=== PATIENT | female | born 1965 | race Caucasian/White ===

== ENCOUNTER → 2017-10-15 11:52 | Outpatient (REF) | payer MEDICARE, MEDICAID, SELFPAY ==
--- NOTE | 2017-10-15 09:55 | PAPFT_PTH ---
PATIENT: Nick Gonzalez LOC: [facility] U#:[id number] AGE/SX: 59/F ROOM: RE10/15/[address]: Gricelda Abdul : 1965 BED: DIS: SPEC #: [id number] RECD: 10/16/17 12:50 STATUS: DENITA RENegra #: [id number] JANNA: 10/15/17 09:[address]: Gricelda Abdul DEPT: [facility] Cytology RECD BY: Snehal Farias ENTERED: 10/16/17 12:50 SP TYPE: PAPFT OTHR DR: Lucie Cornelius Tissues: 1 - CX/ENDOCX FOR PAP SMEARS Procedures: PAP THIN PREP/[facility] Screening HPV DNA PROBE Comments: [id number]
== END ==
LOC: NCHCN 11:52
PROVIDERS: PCP Nurse Practitioner Family; Visit Provider Registered Nurse
DX: Z12.4 Encounter for screening for malignant neoplasm of cervix (principal); Z11.51 Encounter for screening for human papillomavirus (HPV)
CPT/HCPCS: 88142; 87624

== ENCOUNTER 2019-10-06 20:56 | Outpatient (REF) | payer MEDICARE, MEDICAID, SELFPAY ==
[2019-10-06 20:44] LABS: Hemoglobin A1C 6.5 % (3.8-5.6)
[2019-10-06 20:54] LABS: Anion Gap 9.8 mmol/L (3-11); BUN 18 mg/dL (7-18); CO2 28.2 mmol/L (21.0-32.0); Calcium 9.5 mg/dL (8.5-10.1); Calculated LDL 65 mg/dL (<100); Chloride 101 mmol/L (98-107); Cholesterol 143 mg/dL (<200); Estimated GFR 46.64 (mL/min/1.73m2); Glucose 131 mg/dL (74-106); HDL Cholesterol 57 mg/dL (40-60); Potassium 4.3 mmol/L (3.5-5.1); Sodium 139 mmol/L (136-145); Triglyceride 106 mg/dL (<150)
[2019-10-06 21:07] LABS: COMMENT (LAB VIEW ONLY) 27.45 mg/dL; Microalb ug/mg Crea 10.2 ug/mg Cr
== END 2019-10-06 21:16 ==
LOC: NCHCN 20:56
PROVIDERS: PCP Nurse Practitioner Family; Visit Provider Registered Nurse
DX: E11.9 Type 2 diabetes mellitus without complications (principal); E66.9 Obesity, unspecified; E78.5 Hyperlipidemia, unspecified
CPT/HCPCS: 80048; 80061; 82043; 82570; 83036

== ENCOUNTER 2019-10-15 13:40 | Outpatient (REF) | payer MEDICARE, MEDICAID, SELFPAY ==
[2019-10-15 20:59] LABS: BUN 17 mg/dL (7-18); CREATININE 0.95 mg/dL (0.55-1.02)
[2019-10-15 21:01] LABS: TSH < 0.01 uIU/mL (0.36-3.74)
[2019-10-18 09:38] LABS: FREE T4 1.56 ng/dL (0.76-1.46)
[2019-10-18 16:20] LABS: T3, Total 182 ng/dL (97-169)
== END 2019-10-15 14:00 ==
LOC: NCHCN 13:40
PROVIDERS: PCP Nurse Practitioner Family; Visit Provider Registered Nurse
DX: E05.90 Thyrotoxicosis, unspecified without thyrotoxic crisis or storm (principal); R94.4 Abnormal results of kidney function studies
CPT/HCPCS: 84520; 82565; 84439; 84443; 84480

== ENCOUNTER 2019-11-12 17:41 | Outpatient (REF) | payer MEDICARE, MEDICAID, SELFPAY ==
[2019-11-12 20:17] LABS: TSH (W/Ref FT4) < 0.01 uIU/mL (0.36-3.74)
[2019-11-12 20:35] LABS: FREE T4 1.99 ng/dL (0.76-1.46)
[2019-11-14 17:05] LABS: T3, Total 233 ng/dL (97-169)
[2019-11-16 10:30] LABS: Thyrotropin Receptor Ab <1.00 IU/L
== END 2019-11-12 18:01 ==
LOC: NCHCN 17:41
PROVIDERS: PCP Nurse Practitioner Family; Visit Provider Registered Nurse
DX: E05.90 Thyrotoxicosis, unspecified without thyrotoxic crisis or storm (principal)
CPT/HCPCS: 84235; 84439; 84443; 84480

== ENCOUNTER 2020-11-15 14:50 | Outpatient (REF) | payer MEDICARE, MEDICAID, SELFPAY ==
[2020-11-15 21:51] LABS: Anion Gap 8.9 mmol/L (3-11); BUN 18 mg/dL (7-18); CO2 28.1 mmol/L (21.0-32.0); Calcium 8.7 mg/dL (8.5-10.1); Chloride 105 mmol/L (98-107); Estimated GFR 57.35 (mL/min/1.73m2); Glucose 137 mg/dL (74-106); Potassium 4.4 mmol/L (3.5-5.1); Sodium 142 mmol/L (136-145)
[2020-11-15 22:09] LABS: COMMENT (LAB VIEW ONLY) 77.59 mg/dL; Microalb ug/mg Crea 3.9 ug/mg Cr
== END 2020-11-15 14:51 | disposition home or self-care (01) ==
LOC: NCHCN 14:50
PROVIDERS: PCP Nurse Practitioner Family; Visit Provider Registered Nurse
DX: E11.9 Type 2 diabetes mellitus without complications (principal)
CPT/HCPCS: 80048; 82043; 82570

== ENCOUNTER 2021-09-21 15:40 | Outpatient (REF) | payer MEDICARE, MEDICAID, SELFPAY ==
[2021-09-21 16:08] LABS: Anion Gap 8.9 mmol/L (3-11); BUN 17 mg/dL (7-18); CO2 29.1 mmol/L (21.0-32.0); CREATININE 1.1 mg/dL (0.55-1.02); Chloride 102 mmol/L (98-107); Glucose 170 mg/dL (74-106); Potassium 4.1 mmol/L (3.5-5.1); Sodium 140 mmol/L (136-145)
== END 2021-09-21 15:41 | disposition home or self-care (01) ==
LOC: NCHCN 15:40
PROVIDERS: PCP Nurse Practitioner Family; Visit Provider Registered Nurse
DX: E11.9 Type 2 diabetes mellitus without complications (principal)
CPT/HCPCS: 80048

== ENCOUNTER 2022-01-11 14:10 | Outpatient (REF) | payer MEDICARE, MEDICAID, SELFPAY ==
[2022-01-11 15:25] LABS: Calculated LDL 84 mg/dL (<100); Cholesterol 161 mg/dL (<200); HDL Cholesterol 62 mg/dL (40-60); TSH 2.13 uIU/mL (0.36-3.74); Triglyceride 76 mg/dL (<150)
[2022-01-11 15:52] LABS: FREE T4 0.89 ng/dL (0.76-1.46)
[2022-01-11 16:50] LABS: COMMENT (LAB VIEW ONLY) 72.72 mg/dL
== END 2022-01-11 14:11 | disposition home or self-care (01) ==
LOC: NCHCN 14:10
PROVIDERS: PCP Nurse Practitioner Family; Visit Provider Registered Nurse
DX: E11.9 Type 2 diabetes mellitus without complications (principal); E04.2 Nontoxic multinodular goiter; E05.90 Thyrotoxicosis, unspecified without thyrotoxic crisis or storm; E78.5 Hyperlipidemia, unspecified
CPT/HCPCS: 80061; 82043; 82570; 84439; 84443

== ENCOUNTER 2022-04-12 08:59 | Outpatient (REF) | payer MEDICARE, MEDICAID, SELFPAY ==
--- OUTSIDE RECORDS SUMMARY | 2022-04-12 09:06 | XMS_ITS | CCD ---
Author Name Unknown Address [address] [place] [address] [phone] Organization Unknown Address [address] [place] [address] [phone] Care Team Providers Care Entry Level Installation Technician Name Role Phone MEJIA LOPEZ Attending Physician [phone] Vital Signs Unknown or Not Available. Allergies Allergy Code Allergy Type Reaction Status No Known Allergies 0 No known allergies Active Procedures Unknown or Not Available. History of Immunizations Unknown or Not Available. Problems Unknown or Not Available. Results Unknown or Not Available. Active Medications Unknown or Not Available. Medications Administered During Visit Unknown or Not Available. Encounters Unknown or Not Available. Social History Smoking Status Code Start Date End Date Former smoker [id number] Patient Decision Aids Unknown or Not Available. Discharge Instructions You were admitted to [facility] on 01/15/2021 16:48 You were discharged from [facility] on 01/15/2021 16:48 Should you have any questions prior to discharge, please contact a member of your healthcare team. If you have left the hospital and have any questions, please contact your primary care physician. Chief Complaint and Reason For Visit Unknown or Not Available. Function Status Unknown or Not Available. Plan of Care Unknown or Not Available. Referral/Transition of Care Unknown or Not Available.
[2022-04-12 13:59] LABS: ALT 29 U/L (14-59); AST 36 U/L (15-37); Albumin 3.7 g/dL (3.4-5.0); Alkaline Phosphatase 119 U/L (46-116); Anion Gap 7.1 mmol/L (3-11); BUN 21 mg/dL (7-18); Bilirubin, Total 0.5 mg/dL (0.2-1.0); CO2 29.9 mmol/L (21.0-32.0); Calcium 9.3 mg/dL (8.5-10.1); Chloride 104 mmol/L (98-107); Estimated GFR 65.71 (mL/min/1.73m2); Glucose 182 mg/dL (74-106); Potassium 4.1 mmol/L (3.5-5.1); Sodium 141 mmol/L (136-145); Total Protein 7.8 g/dL (6.4-8.2)
== END 2022-04-12 09:00 | disposition home or self-care (01) ==
LOC: NCHCN 08:59
PROVIDERS: PCP Registered Nurse; Visit Provider Registered Nurse
DX: E11.9 Type 2 diabetes mellitus without complications (principal); E66.8 Other obesity
CPT/HCPCS: 80053

== ENCOUNTER 2022-10-10 09:14 | Outpatient (REF) | payer MEDICARE, MEDICAID, SELFPAY ==
--- NOTE | 2022-10-10 08:30 | PAPFT_PTH ---
PATIENT: Nick Gonzalez LOC: [facility]#:[id number] AGE/SX: 57/F ROOM: RE10/10/[address]: Gricelda Abdul : 1965 BED: DIS: 10/10/2022 SPEC #: [id number] RECD: 10/10/22 15:58 STATUS: SHEREENDat REQ #: [id number] JANNA: 10/10/22 08:[address]: Gricelda Abdul DEPT: [facility] Cytology RECD BY: Snehal Farias ENTERED: 10/10/22 15:59 SP TYPE: PAPFT OTHR DR: Gaviota Miguel Tissues: 1 - CX/ENDOCX FOR PAP SMEARS Procedures: PAP THIN PREP/[facility] Screening HPV DNA PROBE Comments: [id number] (HPV 16 & 18/45)
== END 2022-10-10 09:15 | disposition home or self-care (01) ==
LOC: NCHCN 09:14
PROVIDERS: PCP Family Medicine; Visit Provider Registered Nurse
DX: Z12.72 Encounter for screening for malignant neoplasm of vagina (principal); Z11.51 Encounter for screening for human papillomavirus (HPV); Z01.419 Encounter for gynecological examination (general) (routine) without abnormal findings
CPT/HCPCS: 88142; 87624

== ENCOUNTER → 2023-01-02 13:09 | Outpatient (BNVA) | payer MEDICARE, MEDICAID, SELFPAY | PROVIDERS: PCP Family Medicine; Referring Provider Family Medicine; Visit Provider Podiatrist ==

== ENCOUNTER 2024-05-07 14:58 | Outpatient (REF) | payer MEDICARE, MEDICAID, SELFPAY ==
[2024-05-07 15:24] LABS: COMMENT (LAB VIEW ONLY) 52.15 mg/dL; Microalb ug/mg Crea 10.2 ug/mg Cr
== END 2024-05-07 14:59 | disposition home or self-care (01) ==
LOC: NCHCN 14:58
PROVIDERS: PCP Family Medicine; Visit Provider Family Medicine
DX: E11.311 Type 2 diabetes mellitus with unspecified diabetic retinopathy with macular edema (principal)
CPT/HCPCS: 82043; 82570

== ENCOUNTER 2024-05-28 14:30 | Outpatient (REF) | payer MEDICARE, MEDICAID, SELFPAY ==
[2024-05-28 17:03] LABS: ALT 26 U/L (14-59); AST 22 U/L (15-37); Albumin 3.5 g/dL (3.4-5.0); Alkaline Phosphatase 125 U/L (46-116); Anion Gap 5.5 mmol/L (3-11); BUN 16 mg/dL (7-18); Bilirubin, Total 0.5 mg/dL (0.2-1.0); CO2 33.5 mmol/L (21.0-32.0); CREATININE 0.9 mg/dL (0.55-1.02); Calcium 9.4 mg/dL (8.5-10.1); Chloride 104 mmol/L (98-107); Estimated GFR 73.64 (mL/min/1.73m2); Glucose 239 mg/dL (74-106); Potassium 5.6 mmol/L (3.5-5.1); Sodium 143 mmol/L (136-145); TSH 2.22 uIU/mL (0.36-3.74); Total Protein 7.3 g/dL (6.4-8.2)
== END 2024-05-28 14:31 | disposition home or self-care (01) ==
LOC: NCHCN 14:30
PROVIDERS: PCP Family Medicine; Visit Provider Family Medicine
DX: Z00.00 Encounter for general adult medical examination without abnormal findings (principal)
CPT/HCPCS: 80053; 84443

== ENCOUNTER 2024-06-25 12:43 | Outpatient (REF) | payer MEDICARE, MEDICAID, SELFPAY ==
[2024-06-25 14:58] LABS: Potassium 4.7 mmol/L (3.5-5.1)
== END 2024-06-25 12:44 | disposition home or self-care (01) ==
LOC: NCHCN 12:43
PROVIDERS: PCP Family Medicine; Visit Provider Family Medicine
DX: E87.5 Hyperkalemia (principal)
CPT/HCPCS: 84132